=== PATIENT | male | born 1995 ===

== ENCOUNTER 2017-03-01 15:23 | Emergency (ER) | payer BC ==
[2017-03-01 16:09] VITALS: BP 115/75
--- NOTE | 2017-03-01 17:08 | UC ---
Abdominal Pain Male HPI - HPI Summary HPI Summary: patient has had two days of increasing abdominal pain. denies N/V, last night pain was 9/10. Increased with movement. - History of Current Complaint Chief Complaint: UCAbdominalPain Stated Complaint: STOMACH PAIN 2 DAYS Time Seen by Provider: 03/01/17 16:52 Hx Obtained From: Patient Onset/Duration: Sudden Onset, Lasting Days Timing: Constant Severity Initially: Mild Severity Currently: Moderate Location: Discrete At: RLQ Radiates: No Radiates to: RLQ Character: Sharp Aggravating Factor(s):: Movement Alleviating Factor(s): Position - Risk Factors Testicular Torsion: Negative Cardiac Risk Factors: Negative - Allergies/Home Medications Allergies/Adverse Reactions: Allergies Allergy/AdvReac Type Severity Reaction Status Date / Time No Known Allergies Allergy Verified 03/01/17 16:09 Home Medications: Home Medications NK [No Home Medications Reported] 03/01/17 [History Confirmed 03/01/17] PMH/Surg Hx/FS Hx/Imm Hx Previously Healthy: Yes Respiratory History Of: Reports: Asthma - Surgical History Surgical History: Yes Surgery Procedure, Year, and Place: Hip surgeries X2 - Family History Known Family History: Negative: Cardiac Disease, Hypertension - Social History Alcohol Use: Occasionally Substance Use Type: None Smoking Status (MU): Never Smoked Tobacco Review of Systems Constitutional: Negative Skin: Negative Eyes: Negative ENT: Negative Respiratory: Negative Cardiovascular: Negative Gastrointestinal: Abdominal Pain Genitourinary: Negative Motor: Negative Neurovascular: Negative Musculoskeletal: Negative, Calf Tenderness Psychological: Negative All Other Systems Reviewed And Are Negative: Yes Physical Exam Triage Information Reviewed: Yes Appearance: Well-Appearing, Well-Nourished, Pain Distress Vital Signs: Initial Vital Signs Temp 97.5 F 03/01/17 16:04 Pulse 70 03/01/17 16:04 Resp 16 03/01/17 16:04 BP 115/75 03/01/17 16:04 Pulse Ox 98 03/01/17 16:04 Vital Signs Reviewed: Yes Eye Exam: Normal Eyes: Positive: Conjunctiva Clear ENT Exam: Normal ENT: Positive: Hearing grossly normal, Pharynx normal, TMs normal Dental Exam: Normal Neck exam: Normal Neck: Positive: Supple, Nontender, No Lymphadenopathy Respiratory Exam: Normal Respiratory: Positive: Chest non-tender, Lungs clear, Normal breath sounds Cardiovascular Exam: Normal Cardiovascular: Positive: RRR, No Murmur, Pulses Normal Abdominal Exam: Normal, Other - Soft, no organomegaly, + BS, + psoas and Rosving sign, + rebound tenderness, Bowel Sounds: Positive: Present Musculoskeletal Exam: Normal Musculoskeletal: Positive: Strength Intact, ROM Intact, No Edema Neurological Exam: Normal Neurological: Positive: Alert, Muscle Tone Normal Psychological Exam: Normal Skin Exam: Normal Abd Pain Male Course/Dx - Course Course Of Treatment: hx obtained, exam performed,meds reviewed, UA negative, tran[facility]ferred to [facility] via private care for further evaluation. Spoke with Dr rico who accepted the transfer. - Differential Dx/Clinical Impression Differential Diagnosis/HQI/PQRI: Appendicitis, Constipation, Diverticulitis, Ureteral Stone, Urinary Tract Infection Provider Diagnoses: abdominal pain - Physician Notification/Consults Discussed Patient Care With: Dr Rico Discharge - Discharge Plan Condition: Stable Disposition: AGAINST MEDICAL ADVICE
== END 2017-03-01 17:29 | disposition left against medical advice (07) ==
LOC: UCCORT 15:23
DX: R10.31 Right lower quadrant pain (principal); J45.909 Unspecified asthma, uncomplicated
CPT/HCPCS: 81003; 99202; G0463